=== PATIENT | male | born 1975 | race Caucasian/White ===

== ENCOUNTER 2016-09-15 07:09 | Emergency (ER) | payer BC, OTHER ==
[2016-09-15 07:31] VITALS: BP 133/76
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
== END 2016-09-15 08:30 | disposition home or self-care (01) ==
LOC: ER 07:09
DX: S16.1XXA Strain of muscle, fascia and tendon at neck level, initial encounter (principal); V49.40XA Driver injured in collision with unspecified motor vehicles in traffic accident, initial encounter; M25.562 Pain in left knee; M54.5 Low back pain; G89.29 Other chronic pain
CPT/HCPCS: 99283